=== PATIENT | male | born 1935 | race Caucasian/White ===

== ENCOUNTER → 2016-06-17 | Outpatient (CLI) | payer MEDICARE, OTHER ==
[~2016-06-17] MED LIST: ASPIRIN 32325 MG/TAB PO; ASPIRIN E.C. 8181 MG PO; AZULFIDINE500 MG/TAB PO; BENTYL 20MG20 MG/TAB PO; CARAFATE 1GM1 G PO; CARAFATE S1 GM/10 ML PO; COLACE 100100 MG/CAP PO; CRESTOR 10MG10 MG PO; CRESTOR5 MG PO; FLEXERIL10 MG PO; FOLIC ACID 11 MG/TA1 PO; GLUCOSAMINE PO; HCTZ 25MG25 MG PO; IRON325 M2 PO; KEPPRA 500MG500 MG PO; KEPPRA750 MG PO; LEVAQUIN 250MG250 MG PO; LEVAQUIN 5500 MG/TA1 PO; LEVAQUIN 750MG750 M1 PO; LEVOXYL0.025 MG; LIP PO; LISINOPRIL10 MG PO; LISINOPRIL2.5 MG PO; LOPRESSOR 225 MG/TAB PO; METOPROLOL TART25 MG PO; METOPROLOL25 MG PO; MULTI VITAMINS1 TAB PO; NATURAL E400 IU PO; NIACIN500 M1 PO; NIASPAN500 MG PO; NORCO 325 MG-51 TAB PO; PEPCID 20MG TAB20 MG PO; PERCOCET 325 MG1 TA2 PO; PLAVIX 75MG TAB75 MG PO; POTASSIUM CH2 MEQ/ML PO; PRAVACHOL 40MG40 MG PO; PREDNISONE20 MG PO; PROSCAR 5MG5 MG PO; TOPROL XL 25MG25 MG PO; TUSS PO; VALIUM 5MG T5 MG/TAB PO; VITAMIN B-1100 MG PO; VITAMIN D 400400 IU PO; VITAMIND3 5000; ZESTRIL 10MG10 MG PO; ZITHROMAX 250M250 MG PO
== END ==
LOC: COL.VAS 09:00
DX: R06.02 Shortness of breath (principal); J44.9 Chronic obstructive pulmonary disease, unspecified
CPT/HCPCS: J7674

== ENCOUNTER 2016-11-04 13:55 | Inpatient (IN) | payer MEDICARE, OTHER ==
[~2016-11-04] VITALS: Ht 172.7 cm; Wt 72.4 kg
[~2016-11-04 13:55] MED LIST changes: -AZULFIDINE500 MG/TAB PO; -BENTYL 20MG20 MG/TAB PO; -CARAFATE 1GM1 G PO; -CARAFATE S1 GM/10 ML PO; -COLACE 100100 MG/CAP PO; -IRON325 M2 PO; -PRAVACHOL 40MG40 MG PO; -PROSCAR 5MG5 MG PO; -VALIUM 5MG T5 MG/TAB PO; -VITAMIND3 5000
[2016-11-04] MEDS ORDERED: PRAVACHOL 40MG40 MG PO (14:06)
[2016-11-04] MEDS ORDERED: PROSCAR 5MG5 MG PO (14:06)
[2016-11-04] MEDS ORDERED: VITAMIND3 5000 (14:07)
[2016-11-04 15:22] LABS: BASO # 0.1 (0.0-0.2); BASO % 0.7 % (0.0-2.0); EOS # 0.6 (0.0-0.7); EOS % 7.4 % (0-4.0); GRAN # 5.4 (1.4-6.5); GRAN % 65.5 % (42.2-75.2); HEMATOCRIT 43.9 % (42.0-52.0); HEMOGLOBIN 15.4 g/dl (13.5-18.0); LYMPH # 1.6 (1.2-3.4); LYMPH % 19.1 % (20.0-51.0); MEAN CELL VOLUME 90 fl (80.0-100.0); MEAN CORPUSCULAR HEMOGLOBIN 32 pg (27.0-31.0); MEAN CORPUSCULAR HGB CONC 35 g/dl (33.0-37.0); MEAN PLATELET VOLUME 10.8 fl (7.4-10.4); MONO # 0.6 (0.1-0.6); MONO % 7.1 % (1.7-9.3); PLATELET COUNT 193 K/mm3 (130-400); RED BLOOD COUNT 4.86 M/mm3 (4.20-5.60); REDCELL DISTRIBUTION WIDTH-CV 13.2 % (11.5-14.5); WHITE BLOOD COUNT 8.3 K/mm3 (4.8-10.8)
[2016-11-04 15:28] LABS: ADJUSTED CALCIUM 8.8 mg/dL (8.4-10.2); ALBUMIN 4.3 gm/dL (3.5-5.0); BILIRUBIN,TOTAL 0.9 mg/dL (0.0-1.0); CREATININE, serum 1.33 mg/dL (0.66-1.25); POTASSIUM 3.9 mmol/L (3.4-5.0); TOTAL PROTEIN 7.1 gm/dL (6.4-8.2)
[2016-11-04 15:29] LABS: INR 1.1 (0.8-3.0); PROTHROMBIN TIME 11.7 SECONDS (9.7-12.8)
[2016-11-04 16:43] VITALS: BP 135/90; PULSE 65; TEMP 97.9
[2016-11-04 18:34] VITALS: BP 135/90; PULSE 65; TEMP 97.9
[2016-11-04 19:43] VITALS: BP 146/84; PULSE 64; TEMP 98.7
[2016-11-05] VITALS (10 sets, daily range): BP systolic 102–143; BP diastolic 64–92; PULSE 60–90; TEMP 97–98.8
[2016-11-05 07:47] LABS: CALCIUM 8.4 mg/dL (8.4-10.2); CREATININE, serum 1.11 mg/dL (0.66-1.25)
[2016-11-05 07:58] LABS: BASO # 0.1 (0.0-0.2); BASO % 0.8 % (0.0-2.0); EOS # 0.7 (0.0-0.7); GRAN # 5.6 (1.4-6.5); GRAN % 67.5 % (42.2-75.2); HEMATOCRIT 40.5 % (42.0-52.0); LYMPH # 1.4 (1.2-3.4); LYMPH % 17.1 % (20.0-51.0); MEAN CELL VOLUME 91 fl (80.0-100.0); MEAN CORPUSCULAR HEMOGLOBIN 31 pg (27.0-31.0); MEAN CORPUSCULAR HGB CONC 35 g/dl (33.0-37.0); MEAN PLATELET VOLUME 11.4 fl (7.4-10.4); MONO # 0.5 (0.1-0.6); MONO % 6.1 % (1.7-9.3); PLATELET COUNT 177 K/mm3 (130-400); RED BLOOD COUNT 4.47 M/mm3 (4.20-5.60); REDCELL DISTRIBUTION WIDTH-CV 13.2 % (11.5-14.5); WHITE BLOOD COUNT 8.4 K/mm3 (4.8-10.8)
[2016-11-05 13:32] LABS: HEMATOCRIT 37.2 % (42.0-52.0); HEMOGLOBIN 12.8 g/dl (13.5-18.0)
[2016-11-06 02:24] VITALS: BP 155/78; PULSE 60; TEMP 97.8
[2016-11-06 07:20] LABS: HEMATOCRIT 39.1 % (42.0-52.0); HEMOGLOBIN 13.3 g/dl (13.5-18.0)
[2016-11-06 07:31] LABS: CALCIUM 8.1 mg/dL (8.4-10.2); CREATININE, serum 1.16 mg/dL (0.66-1.25); POTASSIUM 3.9 mmol/L (3.4-5.0)
[2016-11-06 08:01] VITALS: BP 142/73; PULSE 62; TEMP 98.4
[2016-11-06 11:59] VITALS: BP 174/95; PULSE 59; TEMP 98.1
[2016-11-06 15:29] VITALS: BP 149/85; PULSE 61; TEMP 98.7
[2016-11-06 19:39] VITALS: BP 124/68; PULSE 59; TEMP 98.1
[2016-11-06 22:43] VITALS: BP 137/67; PULSE 60; TEMP 98
[2016-11-07 02:29] VITALS: BP 146/84; PULSE 71; TEMP 98.9
[2016-11-07 07:11] LABS: HEMATOCRIT 38.5 % (42.0-52.0); HEMOGLOBIN 13.6 g/dl (13.5-18.0)
[2016-11-07 07:44] VITALS: BP 152/85; PULSE 67; TEMP 97.7
[2016-11-07] MEDS ORDERED: IRON325 M2 PO (09:28)
[2016-11-07 11:50] VITALS: BP 131/82; PULSE 60; TEMP 98.5
[2017-01-04] MEDS ORDERED: PLAVIX 75MG TAB75 MG PO (21:46)
[2017-01-07] MEDS ORDERED: AZULFIDINE500 MG/TAB PO (12:06)
[2017-01-07] MEDS ORDERED: CARAFATE S1 GM/10 ML PO (12:06)
== END 2016-11-07 16:07 | disposition home or self-care (01) | DRG 375 ==
LOC: COL.ER 13:55 → MEDICAL 15:49 → EDBEDREQ 16:13 → MEDICAL 11-07 16:07
PROVIDERS: Emergency Medicine; Internal Medicine; Internal Medicine Gastroenterology; Physician Assistant
PROC: 0DBP8ZX Excision of Rectum, Via Natural or Artificial Opening Endoscopic, Diagnostic (ICD-10-PCS; principal; 2016-11-05 11:45)
PROC: 0DJ08ZZ Inspection of Upper Intestinal Tract, Via Natural or Artificial Opening Endoscopic (ICD-10-PCS; 2016-11-05 11:45)
DX: C20 Malignant neoplasm of rectum (principal); K80.10 Calculus of gallbladder with chronic cholecystitis without obstruction; I25.2 Old myocardial infarction; I12.9 Hypertensive chronic kidney disease with stage 1 through stage 4 chronic kidney disease, or unspecified chronic kidney disease; N18.3 Chronic kidney disease, stage 3 (moderate); I48.91 Unspecified atrial fibrillation; I25.10 Atherosclerotic heart disease of native coronary artery without angina pectoris; Z95.5 Presence of coronary angioplasty implant and graft; Z95.0 Presence of cardiac pacemaker; Z85.118 Personal history of other malignant neoplasm of bronchus and lung; Z87.891 Personal history of nicotine dependence; Z90.2 Acquired absence of lung [part of]
CPT/HCPCS: 99223-AI; 99232-AI; 99233-AI; 99239; J2250; J2405; J3010; J7030; Q9967

== ENCOUNTER → 2016-11-11 | Outpatient (CLI) | payer MEDICARE, OTHER ==
[~2016-11-11] MED LIST changes: +AZULFIDINE500 MG/TAB PO; +BENTYL 20MG20 MG/TAB PO; +CARAFATE 1GM1 G PO; +CARAFATE S1 GM/10 ML PO; +COLACE 100100 MG/CAP PO; +IRON325 M2 PO; +PRAVACHOL 40MG40 MG PO; +PROSCAR 5MG5 MG PO; +VALIUM 5MG T5 MG/TAB PO; +VITAMIND3 5000
[2016-11-11 09:35] LABS: HEMATOCRIT 41.9 % (42.0-52.0); HEMOGLOBIN 14.7 g/dl (13.5-18.0); MEAN CELL VOLUME 90 fl (80.0-100.0); MEAN CORPUSCULAR HEMOGLOBIN 32 pg (27.0-31.0); MEAN CORPUSCULAR HGB CONC 35 g/dl (33.0-37.0); MEAN PLATELET VOLUME 12.1 fl (7.4-10.4); PLATELET COUNT 93 K/mm3 (130-400); RED BLOOD COUNT 4.65 M/mm3 (4.20-5.60); REDCELL DISTRIBUTION WIDTH-CV 13.3 % (11.5-14.5); WHITE BLOOD COUNT 7.9 K/mm3 (4.8-10.8)
== END ==
LOC: COL.LAB 07:26
PROVIDERS: Physician Assistant
DX: K63.9 Disease of intestine, unspecified (principal)

== ENCOUNTER → 2016-11-22 | Outpatient (CLI) | payer MEDICARE, OTHER | LOC: COL.RAD 10:53 | DX: C20 Malignant neoplasm of rectum (principal); G31.9 Degenerative disease of nervous system, unspecified; I10 Essential (primary) hypertension | CPT/HCPCS: Q9967 ==

== ENCOUNTER 2016-12-05 10:33 | Day surgery (SDC) | payer MEDICARE, OTHER ==
[~2016-12-05] VITALS: Ht 170.2 cm; Wt 72.0 kg
[~2016-12-05 10:33] MED LIST changes: -AZULFIDINE500 MG/TAB PO; -BENTYL 20MG20 MG/TAB PO; -CARAFATE 1GM1 G PO; -CARAFATE S1 GM/10 ML PO; -COLACE 100100 MG/CAP PO; -VALIUM 5MG T5 MG/TAB PO
[2016-12-05 11:18] LABS: BASO # 0.1 (0.0-0.2); EOS # 0.7 (0.0-0.7); GRAN % 67.9 % (42.2-75.2); HEMATOCRIT 43.1 % (42.0-52.0); HEMOGLOBIN 14.7 g/dl (13.5-18.0); LYMPH # 1.8 (1.2-3.4); LYMPH % 17.1 % (20.0-51.0); MEAN CELL VOLUME 93 fl (80.0-100.0); MEAN CORPUSCULAR HEMOGLOBIN 32 pg (27.0-31.0); MEAN CORPUSCULAR HGB CONC 34 g/dl (33.0-37.0); MEAN PLATELET VOLUME 10.2 fl (7.4-10.4); MONO # 0.7 (0.1-0.6); MONO % 6.7 % (1.7-9.3); PLATELET COUNT 204 K/mm3 (130-400); RED BLOOD COUNT 4.65 M/mm3 (4.20-5.60); REDCELL DISTRIBUTION WIDTH-CV 13.4 % (11.5-14.5); WHITE BLOOD COUNT 10.3 K/mm3 (4.8-10.8)
[2016-12-05 11:19] VITALS: BP 110/78; PULSE 67; TEMP 98.2
[2016-12-05] MEDS ORDERED: MULTI VITAMINS1 TAB PO (11:19)
[2016-12-05 11:40] LABS: CALCIUM 9.5 mg/dL (8.4-10.2); CREATININE, serum 1.33 mg/dL (0.66-1.25); POTASSIUM 4.6 mmol/L (3.4-5.0)
[2016-12-05] MEDS ORDERED: NORCO 325 MG-51 TAB PO (13:22)
[2016-12-05] MEDS ORDERED: COLACE 100100 MG/CAP PO (13:22)
[2016-12-05 13:31] VITALS: BP 80/53; PULSE 64; TEMP 97.9
[2016-12-05 13:45] VITALS: BP 101/66; PULSE 60
[2016-12-05 14:00] VITALS: BP 102/65; PULSE 60
[2017-01-04] MEDS ORDERED: PLAVIX 75MG TAB75 MG PO (21:46)
[2017-01-07] MEDS ORDERED: AZULFIDINE500 MG/TAB PO (12:06)
[2017-01-07] MEDS ORDERED: CARAFATE S1 GM/10 ML PO (12:06)
== END 2016-12-05 14:35 | disposition home or self-care (01) ==
LOC: SDCO 10:33
PROVIDERS: Surgery
DX: C20 Malignant neoplasm of rectum (principal); I10 Essential (primary) hypertension; I25.10 Atherosclerotic heart disease of native coronary artery without angina pectoris; I48.91 Unspecified atrial fibrillation; I25.2 Old myocardial infarction; F17.210 Nicotine dependence, cigarettes, uncomplicated; K21.9 Gastro-esophageal reflux disease without esophagitis; D50.9 Iron deficiency anemia, unspecified; M19.90 Unspecified osteoarthritis, unspecified site; M62.81 Muscle weakness (generalized); Z95.5 Presence of coronary angioplasty implant and graft; Z95.810 Presence of automatic (implantable) cardiac defibrillator; Z85.118 Personal history of other malignant neoplasm of bronchus and lung; Z86.73 Personal history of transient ischemic attack (TIA), and cerebral infarction without residual deficits; Z83.3 Family history of diabetes mellitus
CPT/HCPCS: C1788; J0690; J1644; J2250; J2405; J2704; J3010; J7120

== ENCOUNTER 2017-01-11 16:10 | Emergency (ER) | payer MEDICARE, OTHER ==
[~2017-01-11] VITALS: Ht 170.2 cm; Wt 69.5 kg
[~2017-01-11 16:10] MED LIST changes: +AZULFIDINE500 MG/TAB PO; +CARAFATE S1 GM/10 ML PO; +COLACE 100100 MG/CAP PO
[2017-01-11 16:12] VITALS: TEMP 97.8
[2017-01-11 17:16] LABS: BASO % 0.5 % (0.0-2.0); EOS # 0.2 (0.0-0.7); EOS % 5.5 % (0-4.0); LYMPH # 0.4 (1.2-3.4); LYMPH % 8.4 % (20.0-51.0); MEAN CELL VOLUME 92 fl (80.0-100.0); MEAN CORPUSCULAR HGB CONC 35 g/dl (33.0-37.0); MONO # 0.6 (0.1-0.6); MONO % 13.6 % (1.7-9.3); PLATELET COUNT 174 K/mm3 (130-400); RED BLOOD COUNT 3.74 M/mm3 (4.20-5.60); REDCELL DISTRIBUTION WIDTH-CV 15.6 % (11.5-14.5); WHITE BLOOD COUNT 4.2 K/mm3 (4.8-10.8)
[2017-01-11 17:20] LABS: HEMATOCRIT 34.4 % (42.0-52.0); HEMOGLOBIN 11.9 g/dl (13.5-18.0); MEAN CORPUSCULAR HEMOGLOBIN 32 pg (27.0-31.0)
[2017-01-11 17:37] LABS: ADJUSTED CALCIUM 9.1 mg/dL (8.4-10.2); BILIRUBIN,TOTAL 0.4 mg/dL (0.0-1.0); CALCIUM 8.3 mg/dL (8.4-10.2); CREATININE, serum 1.1 mg/dL (0.66-1.25); POTASSIUM 3.3 mmol/L (3.4-5.0); TOTAL PROTEIN 5.3 gm/dL (6.4-8.2)
[2017-01-11] MEDS ORDERED: CARAFATE 1GM1 G PO (17:54)
[2017-01-11] MEDS ORDERED: BENTYL 20MG20 MG/TAB PO (17:54)
[2017-01-11] MEDS ORDERED: VALIUM 5MG T5 MG/TAB PO (17:54)
[2017-01-11 18:33] VITALS: BP 109/73; PULSE 60
== END 2017-01-11 18:35 | disposition home or self-care (01) ==
LOC: COL.ER 16:10
PROVIDERS: Emergency Medicine
DX: R10.84 Generalized abdominal pain (principal); M54.9 Dorsalgia, unspecified; I25.10 Atherosclerotic heart disease of native coronary artery without angina pectoris; F17.210 Nicotine dependence, cigarettes, uncomplicated; C20 Malignant neoplasm of rectum; Z92.21 Personal history of antineoplastic chemotherapy; Z92.3 Personal history of irradiation; Z79.02 Long term (current) use of antithrombotics/antiplatelets; Z95.5 Presence of coronary angioplasty implant and graft; Z95.0 Presence of cardiac pacemaker; Z95.810 Presence of automatic (implantable) cardiac defibrillator
CPT/HCPCS: J7030

== ENCOUNTER → 2017-02-10 | Outpatient (CLI) | payer MEDICARE, OTHER ==
[~2017-02-10] MED LIST changes: +ASPI325T6 PO; +BENTYL 20MG20 MG/TAB PO; +CARAFATE 1GM1 G PO; +VALIUM 5MG T5 MG/TAB PO
== END ==
LOC: COL.RAD 13:00
DX: G31.9 Degenerative disease of nervous system, unspecified (principal); Z85.118 Personal history of other malignant neoplasm of bronchus and lung; Z85.048 Personal history of other malignant neoplasm of rectum, rectosigmoid junction, and anus

== ENCOUNTER 2017-02-13 11:33 | Observation (INO) | payer MEDICARE, OTHER ==
[~2017-02-13] VITALS: Ht 170.2 cm; Wt 63.3 kg
[~2017-02-13 11:33] MED LIST changes: -ASPI325T6 PO
[2017-02-13 12:11] LABS: BASO % 0.6 % (0.0-2.0); EOS # 0.1 (0.0-0.7); EOS % 0.8 % (0-4.0); GRAN # 5.5 (1.4-6.5); GRAN % 82.7 % (42.2-75.2); LYMPH # 0.5 (1.2-3.4); LYMPH % 7.2 % (20.0-51.0); MEAN CELL VOLUME 94 fl (80.0-100.0); MEAN CORPUSCULAR HGB CONC 33 g/dl (33.0-37.0); MEAN PLATELET VOLUME 10.2 fl (7.4-10.4); MONO # 0.5 (0.1-0.6); MONO % 7.8 % (1.7-9.3); PLATELET COUNT 246 K/mm3 (130-400); RED BLOOD COUNT 3.16 M/mm3 (4.20-5.60); REDCELL DISTRIBUTION WIDTH-CV 16.3 % (11.5-14.5); WHITE BLOOD COUNT 6.6 K/mm3 (4.8-10.8)
[2017-02-13 12:13] LABS: HEMATOCRIT 29.8 % (42.0-52.0); HEMOGLOBIN 9.9 g/dl (13.5-18.0); MEAN CORPUSCULAR HEMOGLOBIN 31 pg (27.0-31.0)
[2017-02-13 12:21] LABS: ADJUSTED CALCIUM 9.2 mg/dL (8.4-10.2); ALANINE AMINOTRANSFERASE 29 U/L (21-72); ALBUMIN 2.9 gm/dL (3.5-5.0); ALKALINE PHOSPHATASE 64 U/L (50-136); ANION GAP 9 mmol/L (7-16); BILIRUBIN,TOTAL 0.6 mg/dL (0.0-1.0); BLOOD UREA NITROGEN 20 mg/dL (9-20); CALCIUM 8.3 mg/dL (8.4-10.2); CARBON DIOXIDE 24 mmol/L (22-30); CHLORIDE 102 mmol/L (98-107); CREATININE, serum 1.24 mg/dL (0.66-1.25); GLUCOSE 119 mg/dL (74-106); POTASSIUM 3.5 mmol/L (3.4-5.0); SODIUM 134 mmol/L (137-145); TOTAL PROTEIN 5.4 gm/dL (6.4-8.2)
[2017-02-13 12:23] LABS: INR 1.1 (0.8-3.0); PROTHROMBIN TIME 12.6 SECONDS (9.7-12.8)
[2017-02-13 12:25] LABS: PARTIAL THROMBOPLASTIN TIME 34.1 SECONDS (26.0-37.0)
[2017-02-13 12:37] LABS: TROPONIN-I < 0.012 ng/mL (0.000-0.034)
[2017-02-13 13:55] LABS: PH 5 (5-8); SQUAMOUS EPITHELIAL 0-2 /hpf; URINE APPEARANCE Clear; URINE BACTERIA None Seen /hpf; URINE BILIRUBIN Negative (NEGATIVE); URINE BLOOD Negative (NEGATIVE); URINE COLOR Yellow; URINE GLUCOSE Negative (NEGATIVE); URINE KETONE Negative (NEGATIVE); URINE UROBILINOGEN Negative (NEGATIVE); URINE WBC 0-2 /hpf
[2017-02-13 15:48] VITALS: BP 129/70; PULSE 78; TEMP 98.6
[2017-02-13 15:51] VITALS: BP 129/70; PULSE 114; PULSE 78; TEMP 98.6
[2017-02-13 19:20] LABS: HEMATOCRIT 27.1 % (42.0-52.0); HEMOGLOBIN 9.1 g/dl (13.5-18.0)
[2017-02-13 19:29] LABS: MAGNESIUM 1.9 mg/dL (1.6-2.3)
[2017-02-13 20:10] VITALS: BP 122/76; PULSE 77; TEMP 97.9
[2017-02-14] VITALS (7 sets, daily range): BP systolic 87–119; BP diastolic 47–75; PULSE 60–67; TEMP 97.6–98.8
[2017-02-14 08:25] LABS: ALANINE AMINOTRANSFERASE 35 U/L (21-72); ALBUMIN 2.2 gm/dL (3.5-5.0); ALKALINE PHOSPHATASE 55 U/L (50-136); ANION GAP 4 mmol/L (7-16); BILIRUBIN,TOTAL 0.4 mg/dL (0.0-1.0); BLOOD UREA NITROGEN 14 mg/dL (9-20); CALCIUM 7.6 mg/dL (8.4-10.2); CARBON DIOXIDE 23 mmol/L (22-30); CHLORIDE 111 mmol/L (98-107); CREATININE, serum 0.97 mg/dL (0.66-1.25); GLUCOSE 76 mg/dL (74-106); POTASSIUM 3.4 mmol/L (3.4-5.0); SODIUM 138 mmol/L (137-145); TOTAL PROTEIN 4.3 gm/dL (6.4-8.2)
[2017-02-14 09:03] LABS: TROPONIN-I < 0.012 ng/mL (0.000-0.034)
[2017-02-14 09:10] LABS: MEAN CELL VOLUME 94 fl (80.0-100.0); MEAN CORPUSCULAR HGB CONC 33 g/dl (33.0-37.0); MEAN PLATELET VOLUME 10.5 fl (7.4-10.4); PLATELET COUNT 184 K/mm3 (130-400); RED BLOOD COUNT 2.65 M/mm3 (4.20-5.60); REDCELL DISTRIBUTION WIDTH-CV 16.2 % (11.5-14.5)
[2017-02-14 09:11] LABS: HEMOGLOBIN 8.3 g/dl (13.5-18.0); MEAN CORPUSCULAR HEMOGLOBIN 31 pg (27.0-31.0)
[2017-02-14 09:12] LABS: INR 1.1 (0.8-3.0); PROTHROMBIN TIME 12.7 SECONDS (9.7-12.8)
[2017-02-14] MEDS ORDERED: ASPI325T6 PO (16:01)
[2017-02-14] MEDS ORDERED: LOPRESSOR 225 MG/TAB PO (16:17)
== END 2017-02-14 20:00 | disposition home or self-care (01) ==
LOC: COL.ER 11:33 → MEDICAL 14:18
PROVIDERS: Emergency Medicine; Internal Medicine; Internal Medicine Interventional Cardiology; Nurse Practitioner
DX: R07.9 Chest pain, unspecified (principal); I95.1 Orthostatic hypotension; C20 Malignant neoplasm of rectum; I12.9 Hypertensive chronic kidney disease with stage 1 through stage 4 chronic kidney disease, or unspecified chronic kidney disease; N18.3 Chronic kidney disease, stage 3 (moderate); D64.9 Anemia, unspecified; I25.10 Atherosclerotic heart disease of native coronary artery without angina pectoris; J44.9 Chronic obstructive pulmonary disease, unspecified; I48.91 Unspecified atrial fibrillation; E44.0 Moderate protein-calorie malnutrition; Z90.2 Acquired absence of lung [part of]; Z95.5 Presence of coronary angioplasty implant and graft; Z95.0 Presence of cardiac pacemaker; Z87.891 Personal history of nicotine dependence; Z85.118 Personal history of other malignant neoplasm of bronchus and lung; Z83.3 Family history of diabetes mellitus
CPT/HCPCS: C9113; G0378; G8978-GP; G8979-GP; G8987-GO; G8988-GO; J2916; J7030; J7050

== ENCOUNTER → 2017-05-28 | Outpatient (REF) ==
[~2017-05-28] MED LIST changes: +ASPI325T6 PO
[2017-05-28 01:35] LABS: MEAN CELL VOLUME 93 fl (80.0-100.0); MEAN CORPUSCULAR HGB CONC 33 g/dl (33.0-37.0); MEAN PLATELET VOLUME 10.9 fl (7.4-10.4); PLATELET COUNT 198 K/mm3 (130-400); RED BLOOD COUNT 2.71 M/mm3 (4.20-5.60); REDCELL DISTRIBUTION WIDTH-CV 13.4 % (11.5-14.5)
[2017-05-28 01:36] LABS: HEMATOCRIT 25.2 % (42.0-52.0); HEMOGLOBIN 8.3 g/dl (13.5-18.0); MEAN CORPUSCULAR HEMOGLOBIN 31 pg (27.0-31.0)
[2017-05-28 02:10] LABS: BAND 18 % (0-10); EOSINOPHIL 4 % (0-4); LYMPHOCYTE 10 % (20.0-51.0); NEUTROPHILS 61 % (42.0-75.2)
[2017-05-28 02:11] LABS: ANISOCYTOSIS 2+; HYPOCHROMIA 2+; MICROCYTOSIS 2+
== END ==
LOC: ZCOL.LAB 01:25
PROVIDERS: Internal Medicine
DX: Z01.89 Encounter for other specified special examinations (principal)

== ENCOUNTER → 2017-06-04 | Outpatient (CLI) | payer MEDICARE, OTHER ==
[2017-06-04 16:38] LABS: BASO % 0.6 % (0.0-2.0); EOS # 0.2 (0.0-0.7); EOS % 2.6 % (0-4.0); GRAN # 5.3 (1.4-6.5); GRAN % 77.4 % (42.2-75.2); HEMATOCRIT 29.9 % (42.0-52.0); HEMOGLOBIN 9.8 g/dl (13.5-18.0); LYMPH # 0.7 (1.2-3.4); LYMPH % 10.9 % (20.0-51.0); MEAN CELL VOLUME 92 fl (80.0-100.0); MEAN CORPUSCULAR HEMOGLOBIN 30 pg (27.0-31.0); MEAN CORPUSCULAR HGB CONC 33 g/dl (33.0-37.0); MEAN PLATELET VOLUME 10.8 fl (7.4-10.4); MONO # 0.6 (0.1-0.6); MONO % 8.2 % (1.7-9.3); PLATELET COUNT 283 K/mm3 (130-400); RED BLOOD COUNT 3.25 M/mm3 (4.20-5.60); REDCELL DISTRIBUTION WIDTH-CV 13.6 % (11.5-14.5)
[2017-06-04 16:48] LABS: ALBUMIN 3.3 gm/dL (3.5-5.0); BILIRUBIN,TOTAL 0.2 mg/dL (0.0-1.0); CALCIUM 9.1 mg/dL (8.4-10.2); CREATININE, serum 1.37 mg/dL (0.66-1.25); POTASSIUM 3.7 mmol/L (3.4-5.0); TOTAL PROTEIN 5.7 gm/dL (6.4-8.2)
== END ==
LOC: ZCOL.LAB 16:26
PROVIDERS: Internal Medicine
DX: I25.10 Atherosclerotic heart disease of native coronary artery without angina pectoris (principal)

== ENCOUNTER → 2017-08-26 | Outpatient (CLI) | payer MEDICARE, OTHER ==
[2017-08-26 14:59] LABS: ALBUMIN 3.5 gm/dL (3.5-5.0); BILIRUBIN,TOTAL 0.6 mg/dL (0.0-1.0); CALCIUM 9.2 mg/dL (8.4-10.2); CHOLESTEROL RISK RATIO 2.5; CREATININE, serum 1.27 mg/dL (0.66-1.25); POTASSIUM 4.1 mmol/L (3.4-5.0); TOTAL PROTEIN 6.2 gm/dL (6.4-8.2)
[2017-08-26 15:29] LABS: THYROID STIMULATING HORMONE 4.91 uIU/mL (0.465-4.680)
== END ==
LOC: ZCOL.LAB 12:44
PROVIDERS: Internal Medicine
DX: Z48.3 Aftercare following surgery for neoplasm (principal); E78.5 Hyperlipidemia, unspecified; D50.9 Iron deficiency anemia, unspecified; R53.1 Weakness

== ENCOUNTER → 2017-08-29 | Outpatient (CLI) | payer MEDICARE, OTHER ==
[2017-08-29 19:01] LABS: BASO % 0.7 % (0.0-2.0); EOS # 0.2 (0.0-0.7); EOS % 2.9 % (0-4.0); GRAN # 4.1 (1.4-6.5); GRAN % 69.9 % (42.2-75.2); LYMPH # 0.6 (1.2-3.4); LYMPH % 10.4 % (20.0-51.0); MEAN CELL VOLUME 89 fl (80.0-100.0); MEAN CORPUSCULAR HGB CONC 34 g/dl (33.0-37.0); MEAN PLATELET VOLUME 10.9 fl (7.4-10.4); MONO # 0.8 (0.1-0.6); MONO % 14.4 % (1.7-9.3); PLATELET COUNT 156 K/mm3 (130-400); RED BLOOD COUNT 3.19 M/mm3 (4.20-5.60)
[2017-08-29 19:03] LABS: HEMATOCRIT 28.5 % (42.0-52.0); HEMOGLOBIN 9.7 g/dl (13.5-18.0); MEAN CORPUSCULAR HEMOGLOBIN 30 pg (27.0-31.0)
[2017-08-29 19:08] LABS: ALBUMIN 3.3 gm/dL (3.5-5.0); BILIRUBIN,TOTAL 0.2 mg/dL (0.0-1.0); CALCIUM 8.8 mg/dL (8.4-10.2); CREATININE, serum 1.41 mg/dL (0.66-1.25); POTASSIUM 3.1 mmol/L (3.4-5.0); TOTAL PROTEIN 5.9 gm/dL (6.4-8.2)
== END ==
LOC: ZCOL.LAB 18:40
PROVIDERS: Internal Medicine
DX: C20 Malignant neoplasm of rectum (principal); I10 Essential (primary) hypertension

== ENCOUNTER → 2017-09-18 | Outpatient (REF) ==
[~2017-09-18] MED LIST changes: +ASPIRIN 81M81 MG/TA2 PO; +FERROUS SU325 MG/TAB PO; +KLOR-CON20 MEQ PO; +MIRALAX PA17 GM/Dose PO; +NASACORT OTC NAS; +PROTONIX 40MG T40 MG PO; +SENOKOT8.6 MG PO
[2017-09-18 02:18] LABS: COLLECTION METHOD CATHETER
[2017-09-18 02:28] LABS: MUCOUS Present /lpf; PH 5 (5-8); SQUAMOUS EPITHELIAL 0-2 /hpf; URINE APPEARANCE Cloudy; URINE BACTERIA None Seen /hpf; URINE BILIRUBIN Negative (NEGATIVE); URINE BLOOD 2+ (NEGATIVE); URINE COLOR Amber; URINE GLUCOSE Negative (NEGATIVE); URINE KETONE Negative (NEGATIVE); URINE LEUKOCYTE ESTERASE 1+ (NEGATIVE); URINE NITRATE Negative (NEGATIVE); URINE PROTEIN(semi-quant) 2+ (NEGATIVE); URINE RBC 20-50 /hpf; URINE UROBILINOGEN Negative (NEGATIVE); URINE WBC >50 /hpf
== END ==
LOC: ZCOL.LAB 02:16
PROVIDERS: Internal Medicine
DX: N39.0 Urinary tract infection, site not specified (principal)

== ENCOUNTER → 2017-09-19 | Outpatient (CLI) | payer MEDICARE, OTHER | LOC: COL.RAD 09:32 | DX: S32.020A Wedge compression fracture of second lumbar vertebra, initial encounter for closed fracture (principal); I71.4 Abdominal aortic aneurysm, without rupture; M51.46 Schmorl's nodes, lumbar region; M47.816 Spondylosis without myelopathy or radiculopathy, lumbar region; M43.16 Spondylolisthesis, lumbar region; K63.89 Other specified diseases of intestine; M51.26 Other intervertebral disc displacement, lumbar region; M99.53 Intervertebral disc stenosis of neural canal of lumbar region | CPT/HCPCS: A9503 ==

== ENCOUNTER 2017-09-22 12:42 | Day surgery (SDC) | payer MEDICARE, OTHER ==
[~2017-09-22] VITALS: Ht 170.2 cm; Wt 62.7 kg
[~2017-09-22 12:42] MED LIST changes: -ASPIRIN 81M81 MG/TA2 PO; -FERROUS SU325 MG/TAB PO
[2017-09-22 13:39] VITALS: BP 135/81; PULSE 61; TEMP 97.3
[2017-09-22] MEDS ORDERED: FERROUS SU325 MG/TAB PO (14:13)
[2017-09-22] MEDS ORDERED: ASPIRIN 81M81 MG/TA2 PO (14:14)
[2017-09-22 14:40] VITALS: BP 113/75; PULSE 60; TEMP 97
[2017-09-22 14:55] VITALS: BP 112/73; PULSE 60
[2017-09-22 15:10] VITALS: BP 105/72; PULSE 60
[2017-09-22 15:26] VITALS: BP 125/78; PULSE 60
[2017-09-22 15:55] VITALS: BP 132/80; PULSE 61
== END 2017-09-22 16:30 | disposition home or self-care (01) ==
LOC: SDCO 12:42
DX: Z85.048 Personal history of other malignant neoplasm of rectum, rectosigmoid junction, and anus (principal); Z86.010 Personal history of colon polyps; D12.3 Benign neoplasm of transverse colon; Z93.3 Colostomy status; K57.30 Diverticulosis of large intestine without perforation or abscess without bleeding; Z79.82 Long term (current) use of aspirin; K21.0 Gastro-esophageal reflux disease with esophagitis; Z95.0 Presence of cardiac pacemaker; Z87.891 Personal history of nicotine dependence; E78.00 Pure hypercholesterolemia, unspecified; I10 Essential (primary) hypertension; I51.9 Heart disease, unspecified; Z85.118 Personal history of other malignant neoplasm of bronchus and lung
CPT/HCPCS: J2250; J3010; J7030

== ENCOUNTER → 2017-09-29 | Outpatient (CLI) | payer MEDICARE, OTHER ==
[~2017-09-29] MED LIST changes: +ASPIRIN 81M81 MG/TA2 PO; +FERROUS SU325 MG/TAB PO
[2017-09-29 11:53] LABS: COLLECTION METHOD CATHETER
[2017-09-29 12:02] LABS: MUCOUS Present /lpf; PH 9 (5-8); SQUAMOUS EPITHELIAL 0-2 /hpf; URINE APPEARANCE Cloudy; URINE BACTERIA Rare /hpf; URINE BILIRUBIN Negative (NEGATIVE); URINE BLOOD 1+ (NEGATIVE); URINE COLOR Yellow; URINE GLUCOSE Negative (NEGATIVE); URINE KETONE Negative (NEGATIVE); URINE LEUKOCYTE ESTERASE 2+ (NEGATIVE); URINE NITRATE Negative (NEGATIVE); URINE PROTEIN(semi-quant) 3+ (NEGATIVE); URINE RBC >50 /hpf; URINE UROBILINOGEN Negative (NEGATIVE)
== END ==
LOC: ZCOL.LAB 11:51
PROVIDERS: Internal Medicine
DX: Z93.2 Ileostomy status (principal)

== ENCOUNTER → 2017-10-01 | Outpatient (REF) | LOC: ZCOL.LAB 10:04 | DX: Z01.89 Encounter for other specified special examinations (principal) ==

== ENCOUNTER → 2017-10-03 | Outpatient (CLI) | payer MEDICARE, OTHER ==
[2017-10-03 16:10] LABS: BASO # 0.1 (0.0-0.2); EOS # 0.2 (0.0-0.7); EOS % 3.1 % (0-4.0); GRAN # 4.1 (1.4-6.5); HEMOGLOBIN 11.2 g/dl (13.5-18.0); LYMPH # 0.8 (1.2-3.4); LYMPH % 14.4 % (20.0-51.0); MEAN CELL VOLUME 98 fl (80.0-100.0); MEAN CORPUSCULAR HEMOGLOBIN 33 pg (27.0-31.0); MEAN CORPUSCULAR HGB CONC 33 g/dl (33.0-37.0); MEAN PLATELET VOLUME 12.2 fl (7.4-10.4); MONO # 0.6 (0.1-0.6); PLATELET COUNT 156 K/mm3 (130-400); RED BLOOD COUNT 3.45 M/mm3 (4.20-5.60); REDCELL DISTRIBUTION WIDTH-CV 17.9 % (11.5-14.5)
[2017-10-03 16:12] LABS: HEMATOCRIT 33.8 % (42.0-52.0)
[2017-10-03 16:42] LABS: ALBUMIN 3.8 gm/dL (3.5-5.0); BILIRUBIN,TOTAL 0.5 mg/dL (0.0-1.0); CALCIUM 9.5 mg/dL (8.4-10.2); CREATININE, serum 1.16 mg/dL (0.66-1.25); POTASSIUM 4.1 mmol/L (3.4-5.0); TOTAL PROTEIN 6.8 gm/dL (6.4-8.2)
== END ==
LOC: ZCOL.LAB 13:00
PROVIDERS: Internal Medicine
DX: C20 Malignant neoplasm of rectum (principal)

== ENCOUNTER → 2017-10-17 | Outpatient (CLI) | payer MEDICARE, OTHER ==
[2017-10-17 18:24] LABS: CALCIUM 9.2 mg/dL (8.4-10.2); CREATININE, serum 1.16 mg/dL (0.66-1.25); POTASSIUM 4.2 mmol/L (3.4-5.0)
== END ==
LOC: ZCOL.LAB 18:15
PROVIDERS: Internal Medicine
DX: I10 Essential (primary) hypertension (principal)

== ENCOUNTER → 2017-12-15 | Outpatient (REF) ==
[2017-12-15 11:15] LABS: BASO # 0.1 (0.0-0.2); BASO % 0.8 % (0.0-2.0); EOS # 0.6 (0.0-0.7); EOS % 9.1 % (0-4.0); GRAN # 4.3 (1.4-6.5); GRAN % 66.5 % (42.2-75.2); HEMATOCRIT 33.6 % (42.0-52.0); HEMOGLOBIN 11.3 g/dl (13.5-18.0); LYMPH # 0.9 (1.2-3.4); LYMPH % 14.5 % (20.0-51.0); MEAN CELL VOLUME 92 fl (80.0-100.0); MEAN CORPUSCULAR HEMOGLOBIN 31 pg (27.0-31.0); MEAN CORPUSCULAR HGB CONC 34 g/dl (33.0-37.0); MEAN PLATELET VOLUME 10.6 fl (7.4-10.4); MONO # 0.6 (0.1-0.6); MONO % 8.6 % (1.7-9.3); PLATELET COUNT 159 K/mm3 (130-400); RED BLOOD COUNT 3.67 M/mm3 (4.20-5.60); REDCELL DISTRIBUTION WIDTH-CV 13.2 % (11.5-14.5)
== END ==
LOC: ZCOL.LAB 10:59
PROVIDERS: Internal Medicine
DX: D50.9 Iron deficiency anemia, unspecified (principal); I48.0 Paroxysmal atrial fibrillation

== ENCOUNTER → 2017-12-16 | Outpatient (REF) ==
[2017-12-16 11:30] LABS: COLLECTION METHOD RANDOM VOIDED
[2017-12-16 11:48] LABS: MUCOUS Present /lpf; PH 7 (5-8); SQUAMOUS EPITHELIAL 0-2 /hpf; URINE APPEARANCE Hazy; URINE BACTERIA Rare /hpf; URINE BILIRUBIN Negative (NEGATIVE); URINE BLOOD 1+ (NEGATIVE); URINE COLOR Yellow; URINE GLUCOSE Negative (NEGATIVE); URINE KETONE Negative (NEGATIVE); URINE LEUKOCYTE ESTERASE 2+ (NEGATIVE); URINE NITRATE Positive (NEGATIVE); URINE PROTEIN(semi-quant) 2+ (NEGATIVE); URINE UROBILINOGEN Negative (NEGATIVE)
[2017-12-16 11:49] LABS: ALBUMIN 3.7 gm/dL (3.5-5.0); BILIRUBIN,TOTAL 0.4 mg/dL (0.0-1.0); CALCIUM 9.5 mg/dL (8.4-10.2); CREATININE, serum 1.21 mg/dL (0.66-1.25); POTASSIUM 3.9 mmol/L (3.4-5.0); TOTAL PROTEIN 6.2 gm/dL (6.4-8.2)
== END ==
LOC: ZCOL.LAB 11:28
PROVIDERS: Internal Medicine
DX: D50.9 Iron deficiency anemia, unspecified (principal); I10 Essential (primary) hypertension; N39.0 Urinary tract infection, site not specified

== ENCOUNTER → 2017-12-23 | Outpatient (REF) | LOC: ZCOL.LAB 16:16 | DX: M62.81 Muscle weakness (generalized) (principal) ==

== ENCOUNTER → 2018-01-06 | Outpatient (REF) ==
[2018-01-06 11:24] LABS: IRON,SERUM 54 ug/dL (35-150)
[2018-01-06 11:33] LABS: TOTAL IRON BINDING CAPACITY 288 ug/dL (261-462)
[2018-01-06 12:00] LABS: FERRITIN 179 ng/mL (18-464)
== END ==
LOC: ZCOL.LAB 11:06
PROVIDERS: Internal Medicine
DX: D50.9 Iron deficiency anemia, unspecified (principal)

== ENCOUNTER → 2018-01-08 | Outpatient (CLI) | payer MEDICARE, OTHER | LOC: ZCOL.LAB 12:59 | DX: N40.0 Benign prostatic hyperplasia without lower urinary tract symptoms (principal) ==

== ENCOUNTER 2018-05-01 09:25 | Day surgery (SDC) | payer MEDICARE, OTHER ==
[~2018-05-01] VITALS: Ht 170.3 cm; Wt 72.9 kg
[2018-05-01] VITALS (16 sets, daily range): BP systolic 136–170; BP diastolic 62–112; PULSE 60–75; TEMP 97.3
[~2018-05-01 09:25] MED LIST changes: -VITAMIND3 5000; +VITAMIND3 5000 PO
[2018-05-01 10:30] LABS: HEMATOCRIT 37.1 % (42.0-52.0); HEMOGLOBIN 12.6 g/dl (13.5-18.0); MEAN CELL VOLUME 92 fl (80.0-100.0); MEAN CORPUSCULAR HEMOGLOBIN 31 pg (27.0-31.0); MEAN CORPUSCULAR HGB CONC 34 g/dl (33.0-37.0); MEAN PLATELET VOLUME 10.2 fl (7.4-10.4); PLATELET COUNT 143 K/mm3 (130-400); RED BLOOD COUNT 4.05 M/mm3 (4.20-5.60); REDCELL DISTRIBUTION WIDTH-CV 13.6 % (11.5-14.5)
[2018-05-01] MEDS ORDERED: ASPIRIN E.C. 8181 MG PO (10:33)
[2018-05-01] MEDS ORDERED: MIRALAX PA17 GM/Dose PO (10:35)
[2018-05-01 10:36] LABS: PROTHROMBIN TIME 11.9 SECONDS (9.7-12.8)
[2018-05-01] MEDS ORDERED: APRESOLINE 25MG25 MG PO (10:38)
[2018-05-01 10:39] LABS: CALCIUM 9.4 mg/dL (8.4-10.2); CREATININE, serum 1.66 mg/dL (0.66-1.25); POTASSIUM 4.1 mmol/L (3.4-5.0)
[2018-05-01] MEDS ORDERED: VITAMIN C500 MG PO (10:39)
[2018-05-01] MEDS ORDERED: TYLENOL 325MG325 MG PO (10:41)
[2018-05-01] MEDS ORDERED: KEPPRA750 MG PO (10:42)
[2018-05-01] MEDS ORDERED: METOPROLOL TART75 MG PO (10:44)
== END 2018-05-01 19:21 ==
LOC: COL.CAR 09:25
PROVIDERS: Internal Medicine Interventional Cardiology
DX: I25.10 Atherosclerotic heart disease of native coronary artery without angina pectoris (principal); I71.4 Abdominal aortic aneurysm, without rupture; I49.5 Sick sinus syndrome; R94.39 Abnormal result of other cardiovascular function study; E78.5 Hyperlipidemia, unspecified; N18.3 Chronic kidney disease, stage 3 (moderate); E87.6 Hypokalemia; J44.9 Chronic obstructive pulmonary disease, unspecified; Z90.2 Acquired absence of lung [part of]; Z79.82 Long term (current) use of aspirin; Z95.0 Presence of cardiac pacemaker; Z95.5 Presence of coronary angioplasty implant and graft; Z87.891 Personal history of nicotine dependence; Z85.048 Personal history of other malignant neoplasm of rectum, rectosigmoid junction, and anus; Z85.118 Personal history of other malignant neoplasm of bronchus and lung; Z83.3 Family history of diabetes mellitus
CPT/HCPCS: J0360; J1644; J2250; J7040

== ENCOUNTER → 2018-05-22 | Outpatient (REF) ==
[~2018-05-22] MED LIST changes: +APRESOLINE 25MG25 MG PO; +METOPROLOL TART75 MG PO; +TYLENOL 325MG325 MG PO; +VITAMIN C500 MG PO
[2018-05-22 10:28] LABS: ALBUMIN 4.2 gm/dL (3.5-5.0); BILIRUBIN,TOTAL 0.5 mg/dL (0.0-1.0); CALCIUM 9.8 mg/dL (8.4-10.2); CREATININE, serum 1.64 mg/dL (0.66-1.25); MAGNESIUM 1.9 mg/dL (1.6-2.3); POTASSIUM 4.4 mmol/L (3.4-5.0); TOTAL PROTEIN 6.7 gm/dL (6.4-8.2)
== END ==
LOC: ZCOL.LAB 10:03
PROVIDERS: Internal Medicine
DX: Z01.89 Encounter for other specified special examinations (principal)

== ENCOUNTER → 2018-06-05 | Outpatient (CLI) | payer MEDICARE, MEDICAID ==
[2018-06-05 13:56] LABS: MAGNESIUM 1.9 mg/dL (1.6-2.3)
== END ==
LOC: ZCOL.LAB 12:25
PROVIDERS: Internal Medicine
DX: D50.9 Iron deficiency anemia, unspecified (principal); E78.5 Hyperlipidemia, unspecified

== ENCOUNTER → 2018-06-08 | Outpatient (REF) ==
[2018-06-08 11:24] LABS: CALCIUM 9.1 mg/dL (8.4-10.2); CREATININE, serum 1.68 mg/dL (0.66-1.25); POTASSIUM 4.1 mmol/L (3.4-5.0)
== END ==
LOC: ZCOL.LAB 10:57
PROVIDERS: Internal Medicine
DX: N30.00 Acute cystitis without hematuria (principal)

== ENCOUNTER → 2018-07-10 | Outpatient (CLI) | payer MEDICARE, MEDICAID | LOC: COL.RAD 09:17 | DX: Z93.3 Colostomy status (principal) ==

== ENCOUNTER → 2018-07-21 | Outpatient (CLI) | payer MEDICARE, MEDICAID | LOC: ZCOL.LAB 09:24 | DX: C20 Malignant neoplasm of rectum (principal) ==

== ENCOUNTER → 2018-07-21 | Outpatient (CLI) | payer MEDICARE, MEDICAID | LOC: ZCOL.LAB 08:42 | DX: N39.0 Urinary tract infection, site not specified (principal) ==

== ENCOUNTER → 2018-09-02 | Outpatient (CLI) | payer MEDICARE, MEDICAID ==
[2018-09-02 11:51] LABS: CALCIUM 9.5 mg/dL (8.4-10.2); CREATININE, serum 1.98 (0.66-1.25)
== END ==
LOC: COL.LAB 10:57
PROVIDERS: Internal Medicine
DX: I25.10 Atherosclerotic heart disease of native coronary artery without angina pectoris (principal)

== ENCOUNTER → 2018-09-14 | Outpatient (CLI) | payer MEDICARE, MEDICAID | LOC: ZCOL.LAB 12:05 | DX: I10 Essential (primary) hypertension (principal) ==

== ENCOUNTER → 2018-09-14 | Outpatient (CLI) | payer MEDICARE, MEDICAID ==
[2018-09-14 13:32] LABS: CALCIUM 9.4 mg/dL (8.4-10.2); CREATININE, serum 1.77 (0.66-1.25); POTASSIUM 3.7 mmol/L (3.4-5.0)
== END ==
LOC: ZCOL.LAB 12:36
PROVIDERS: Internal Medicine
DX: I10 Essential (primary) hypertension (principal)

== ENCOUNTER → 2018-10-28 | Outpatient (CLI) | payer MEDICARE, OTHER, MEDICAID ==
[2018-10-28 00:46] LABS: COLLECTION METHOD CATHETER
[2018-10-28 00:54] LABS: MUCOUS Present /lpf; PH 6 (5-8); SQUAMOUS EPITHELIAL 0-2 /hpf; URINE APPEARANCE Hazy; URINE BACTERIA None Seen /hpf; URINE BILIRUBIN Negative (NEGATIVE); URINE BLOOD Negative (NEGATIVE); URINE COLOR Yellow; URINE GLUCOSE Negative (NEGATIVE); URINE KETONE Negative (NEGATIVE); URINE LEUKOCYTE ESTERASE Trace (NEGATIVE); URINE NITRATE Negative (NEGATIVE); URINE PROTEIN(semi-quant) 1+ (NEGATIVE); URINE UROBILINOGEN Negative (NEGATIVE)
== END ==
LOC: ZCOL.LAB 00:35
PROVIDERS: Internal Medicine
DX: Z01.89 Encounter for other specified special examinations (principal)

== ENCOUNTER → 2018-11-13 | Outpatient (CLI) | payer MEDICARE, OTHER, MEDICAID ==
[2018-11-13 20:50] LABS: IRON,SERUM 111 ug/dL (35-150)
[2018-11-13 20:59] LABS: TOTAL IRON BINDING CAPACITY 285 ug/dL (261-462)
[2018-11-13 21:26] LABS: FERRITIN 239 ng/mL (18-464)
== END ==
LOC: ZCOL.LAB 16:03
PROVIDERS: Internal Medicine
DX: D50.9 Iron deficiency anemia, unspecified (principal)

== ENCOUNTER → 2018-12-01 | Outpatient (CLI) | payer MEDICARE, OTHER, MEDICAID | LOC: ZCOL.LAB 17:54 | DX: I25.10 Atherosclerotic heart disease of native coronary artery without angina pectoris (principal) ==

== ENCOUNTER → 2018-12-09 | Outpatient (CLI) | payer MEDICARE, OTHER, MEDICAID ==
[2018-12-09 13:44] LABS: CHOLESTEROL RISK RATIO 3.9
== END ==
LOC: ZCOL.LAB 12:52
PROVIDERS: Internal Medicine
DX: D50.9 Iron deficiency anemia, unspecified (principal); E78.5 Hyperlipidemia, unspecified; K21.9 Gastro-esophageal reflux disease without esophagitis

== ENCOUNTER → 2018-12-22 | Outpatient (CLI) | payer MEDICARE, OTHER, MEDICAID ==
[2018-12-22 18:41] LABS: BASO # 0.1 (0.0-0.2); BASO % 0.7 % (0.0-2.0); EOS # 0.7 (0.0-0.7); EOS % 10.5 % (0-4.0); GRAN # 4.7 (1.4-6.5); GRAN % 69.2 % (42.2-75.2); HEMATOCRIT 40.4 % (42.0-52.0); HEMOGLOBIN 13.4 g/dl (13.5-18.0); LYMPH # 0.9 (1.2-3.4); LYMPH % 13.7 % (20.0-51.0); MEAN CELL VOLUME 92 fl (80.0-100.0); MEAN CORPUSCULAR HEMOGLOBIN 30 pg (27.0-31.0); MEAN CORPUSCULAR HGB CONC 33 g/dl (33.0-37.0); MEAN PLATELET VOLUME 11.5 fl (7.4-10.4); MONO # 0.4 (0.1-0.6); MONO % 5.5 % (1.7-9.3); PLATELET COUNT 179 K/mm3 (130-400); RED BLOOD COUNT 4.41 M/mm3 (4.20-5.60); REDCELL DISTRIBUTION WIDTH-CV 13.6 % (11.5-14.5)
[2018-12-22 18:59] LABS: ALBUMIN 4.2 gm/dL (3.5-5.0); BILIRUBIN,TOTAL 0.6 mg/dL (0.0-1.0); CALCIUM 9.3 mg/dL (8.4-10.2); CREATININE, serum 1.78 (0.66-1.25); POTASSIUM 5.1 mmol/L (3.4-5.0); TOTAL PROTEIN 6.8 gm/dL (6.4-8.2)
[2018-12-22 19:30] LABS: THYROID STIMULATING HORMONE 5.66 uIU/mL (0.465-4.680)
== END ==
LOC: ZCOL.LAB 17:39
PROVIDERS: Internal Medicine
DX: Z13.0 Encounter for screening for diseases of the blood and blood-forming organs and certain disorders involving the immune mechanism (principal); D50.9 Iron deficiency anemia, unspecified; E78.5 Hyperlipidemia, unspecified

== ENCOUNTER → 2019-02-11 | Outpatient (CLI) | payer MEDICARE, MEDICAID ==
[2019-02-11 17:21] LABS: CALCIUM 9.4 mg/dL (8.4-10.2); CREATININE, serum 1.81 (0.66-1.25)
[2019-02-11 21:48] LABS: THYROID STIMULATING HORMONE 3.83 uIU/mL (0.465-4.680)
== END ==
LOC: ZCOL.LAB 15:28
PROVIDERS: Internal Medicine
DX: J44.9 Chronic obstructive pulmonary disease, unspecified (principal)

== ENCOUNTER → 2019-02-16 | Outpatient (CLI) | payer MEDICARE, MEDICAID ==
[2019-02-16 17:34] LABS: CREATININE, serum 1.52 (0.66-1.25)
== END ==
LOC: ZCOL.LAB 17:00
PROVIDERS: Internal Medicine
DX: R79.89 Other specified abnormal findings of blood chemistry (principal)

== ENCOUNTER → 2019-05-27 | Outpatient (CLI) | payer MEDICARE, MEDICAID ==
[2019-05-27 12:37] LABS: BASO # 0.1 (0.0-0.2); BASO % 0.5 % (0.0-2.0); EOS # 0.4 (0.0-0.7); EOS % 2.7 % (0-4.0); GRAN # 12.1 (1.4-6.5); GRAN % 81.9 % (42.2-75.2); HEMATOCRIT 45.3 % (42.0-52.0); LYMPH # 1.1 (1.2-3.4); LYMPH % 7.2 % (20.0-51.0); MEAN CELL VOLUME 93 fl (80.0-100.0); MEAN CORPUSCULAR HEMOGLOBIN 31 pg (27.0-31.0); MEAN CORPUSCULAR HGB CONC 33 g/dl (33.0-37.0); MEAN PLATELET VOLUME 11.5 fl (7.4-10.4); MONO # 0.9 (0.1-0.6); MONO % 6.3 % (1.7-9.3); PLATELET COUNT 191 K/mm3 (130-400); RED BLOOD COUNT 4.89 M/mm3 (4.20-5.60)
[2019-05-27 12:55] LABS: ALBUMIN 4.4 gm/dL (3.5-5.0); BILIRUBIN,TOTAL 0.6 mg/dL (0.0-1.0); CALCIUM 9.9 mg/dL (8.4-10.2); CREATININE, serum 1.67 (0.66-1.25); POTASSIUM 4.3 mmol/L (3.4-5.0); TOTAL PROTEIN 7.1 gm/dL (6.4-8.2)
== END ==
LOC: ZCOL.LAB 10:48
PROVIDERS: Internal Medicine
DX: R79.0 Abnormal level of blood mineral (principal); R79.89 Other specified abnormal findings of blood chemistry

== ENCOUNTER → 2019-06-08 | Outpatient (CLI) | payer MEDICARE, MEDICAID ==
[2019-06-08 13:37] LABS: BASO % 0.4 % (0.0-2.0); EOS # 0.3 (0.0-0.7); EOS % 3.6 % (0-4.0); GRAN # 5.3 (1.4-6.5); GRAN % 76.9 % (42.2-75.2); HEMATOCRIT 43.3 % (42.0-52.0); HEMOGLOBIN 14.5 g/dl (13.5-18.0); LYMPH # 0.9 (1.2-3.4); LYMPH % 12.2 % (20.0-51.0); MEAN CELL VOLUME 91 fl (80.0-100.0); MEAN CORPUSCULAR HEMOGLOBIN 31 pg (27.0-31.0); MEAN CORPUSCULAR HGB CONC 34 g/dl (33.0-37.0); MEAN PLATELET VOLUME 11.6 fl (7.4-10.4); MONO # 0.4 (0.1-0.6); MONO % 6.2 % (1.7-9.3); PLATELET COUNT 180 K/mm3 (130-400); RED BLOOD COUNT 4.76 M/mm3 (4.20-5.60); REDCELL DISTRIBUTION WIDTH-CV 14.4 % (11.5-14.5)
[2019-06-08 13:42] LABS: ALBUMIN 4.2 gm/dL (3.5-5.0); BILIRUBIN,TOTAL 0.4 mg/dL (0.0-1.0); CALCIUM 9.6 mg/dL (8.4-10.2); CREATININE, serum 1.77 (0.66-1.25); POTASSIUM 4.1 mmol/L (3.4-5.0); TOTAL PROTEIN 7.1 gm/dL (6.4-8.2)
== END ==
LOC: ZCOL.LAB 13:22
PROVIDERS: Internal Medicine
DX: E78.5 Hyperlipidemia, unspecified (principal)

== ENCOUNTER → 2019-06-17 | Outpatient (CLI) | payer MEDICARE, MEDICAID ==
[2019-06-17 14:05] LABS: BASO % 0.4 % (0.0-2.0); EOS # 0.3 (0.0-0.7); EOS % 4.1 % (0-4.0); GRAN # 5.6 (1.4-6.5); GRAN % 76.5 % (42.2-75.2); HEMATOCRIT 39.4 % (42.0-52.0); HEMOGLOBIN 13.1 g/dl (13.5-18.0); LYMPH # 0.7 (1.2-3.4); LYMPH % 10.2 % (20.0-51.0); MEAN CELL VOLUME 92 fl (80.0-100.0); MEAN CORPUSCULAR HEMOGLOBIN 31 pg (27.0-31.0); MEAN CORPUSCULAR HGB CONC 33 g/dl (33.0-37.0); MONO # 0.6 (0.1-0.6); MONO % 7.8 % (1.7-9.3); PLATELET COUNT 203 K/mm3 (130-400); RED BLOOD COUNT 4.29 M/mm3 (4.20-5.60); REDCELL DISTRIBUTION WIDTH-CV 14.1 % (11.5-14.5)
== END ==
LOC: ZCOL.LAB 13:37
PROVIDERS: Internal Medicine
DX: J44.9 Chronic obstructive pulmonary disease, unspecified (principal)

== ENCOUNTER 2019-07-19 14:18 | Emergency (ER) | payer MEDICARE, MEDICAID ==
[~2019-07-19] VITALS: Ht 170.2 cm; Wt 81.4 kg
[2019-07-19 14:26] VITALS: BP 142/76; TEMP 98.1
[2019-07-19 15:57] LABS: BASO % 0.4 % (0.0-2.0); EOS # 0.1 (0.0-0.7); GRAN # 6.8 (1.4-6.5); GRAN % 84.4 % (42.2-75.2); HEMOGLOBIN 12.4 g/dl (13.5-18.0); LYMPH # 0.4 (1.2-3.4); LYMPH % 4.6 % (20.0-51.0); MEAN CELL VOLUME 91 fl (80.0-100.0); MEAN CORPUSCULAR HEMOGLOBIN 31 pg (27.0-31.0); MEAN CORPUSCULAR HGB CONC 34 g/dl (33.0-37.0); MEAN PLATELET VOLUME 11.1 fl (7.4-10.4); MONO # 0.7 (0.1-0.6); MONO % 8.6 % (1.7-9.3); PLATELET COUNT 153 K/mm3 (130-400); RED BLOOD COUNT 4.07 M/mm3 (4.20-5.60); REDCELL DISTRIBUTION WIDTH-CV 14.6 % (11.5-14.5)
[2019-07-19 16:00] LABS: COLLECTION METHOD UROSTOMY
[2019-07-19 16:09] LABS: MUCOUS Present /lpf; PH 7 (5-8); SQUAMOUS EPITHELIAL 0-2 /hpf; URINE APPEARANCE Hazy; URINE BACTERIA Rare /hpf; URINE BILIRUBIN Negative (NEGATIVE); URINE BLOOD Negative (NEGATIVE); URINE COLOR Yellow; URINE GLUCOSE Negative (NEGATIVE); URINE KETONE Negative (NEGATIVE); URINE LEUKOCYTE ESTERASE Negative (NEGATIVE); URINE NITRATE Positive (NEGATIVE); URINE PROTEIN(semi-quant) Negative (NEGATIVE); URINE RBC 0-2 /hpf; URINE UROBILINOGEN Negative (NEGATIVE)
[2019-07-19 17:28] LABS: ALBUMIN 3.9 gm/dL (3.5-5.0); BILIRUBIN,TOTAL 0.6 mg/dL (0.0-1.0); CALCIUM 8.8 mg/dL (8.4-10.2); CREATININE, serum 1.77 (0.66-1.25); POTASSIUM 3.4 mmol/L (3.4-5.0); TOTAL PROTEIN 6.6 gm/dL (6.4-8.2)
[2019-07-19] MEDS ORDERED: TAMIFLU 75MG75 MG PO (17:36)
[2019-07-19] MEDS ORDERED: CEPHALEXIN500 M1 PO (17:36)
[2019-07-19 18:29] VITALS: PULSE 74
== END 2019-07-19 18:29 | disposition home or self-care (01) ==
LOC: COL.ER 14:18
PROVIDERS: Emergency Medicine
DX: N39.0 Urinary tract infection, site not specified (principal); J10.1 Influenza due to other identified influenza virus with other respiratory manifestations; J44.9 Chronic obstructive pulmonary disease, unspecified; I10 Essential (primary) hypertension; I25.10 Atherosclerotic heart disease of native coronary artery without angina pectoris; Z79.82 Long term (current) use of aspirin; Z85.118 Personal history of other malignant neoplasm of bronchus and lung; Z85.038 Personal history of other malignant neoplasm of large intestine; Z85.040 Personal history of malignant carcinoid tumor of rectum
CPT/HCPCS: J7040

== ENCOUNTER → 2019-08-04 | Outpatient (CLI) | payer MEDICARE, MEDICAID ==
[~2019-08-04] MED LIST changes: +CEPHALEXIN500 M1 PO; +TAMIFLU 75MG75 MG PO
[2019-08-04 20:24] LABS: BASO # 0.1 (0.0-0.2); BASO % 0.5 % (0.0-2.0); EOS # 0.1 (0.0-0.7); EOS % 0.9 % (0-4.0); GRAN # 8.8 (1.4-6.5); GRAN % 83.7 % (42.2-75.2); HEMATOCRIT 40.1 % (42.0-52.0); HEMOGLOBIN 13.3 g/dl (13.5-18.0); LYMPH # 0.8 (1.2-3.4); LYMPH % 7.6 % (20.0-51.0); MEAN CELL VOLUME 92 fl (80.0-100.0); MEAN CORPUSCULAR HEMOGLOBIN 31 pg (27.0-31.0); MEAN CORPUSCULAR HGB CONC 33 g/dl (33.0-37.0); MEAN PLATELET VOLUME 11.7 fl (7.4-10.4); MONO # 0.7 (0.1-0.6); MONO % 6.9 % (1.7-9.3); PLATELET COUNT 191 K/mm3 (130-400); RED BLOOD COUNT 4.35 M/mm3 (4.20-5.60); REDCELL DISTRIBUTION WIDTH-CV 14.5 % (11.5-14.5)
[2019-08-04 20:35] LABS: CALCIUM 9.6 mg/dL (8.4-10.2); CREATININE, serum 1.6 (0.66-1.25); POTASSIUM 4.4 mmol/L (3.4-5.0)
== END ==
LOC: ZCOL.LAB 20:17
PROVIDERS: Internal Medicine
DX: J18.9 Pneumonia, unspecified organism (principal)

== ENCOUNTER → 2019-12-07 | Outpatient (CLI) | payer MEDICARE, MEDICAID | LOC: ZCOL.LAB 15:12 | DX: E61.2 Magnesium deficiency (principal); D51.9 Vitamin B12 deficiency anemia, unspecified ==

== ENCOUNTER → 2020-02-07 | Outpatient (CLI) | payer MEDICARE, MEDICAID ==
[2020-02-07 12:01] LABS: ALBUMIN 3.5 gm/dL (3.5-5.0); BILIRUBIN,TOTAL 0.7 mg/dL (0.0-1.0); CALCIUM 8.9 mg/dL (8.4-10.2); CHOLESTEROL RISK RATIO 3.1; CREATININE, serum 1.39 (0.66-1.25); POTASSIUM 3.7 mmol/L (3.4-5.0); TOTAL PROTEIN 5.9 gm/dL (6.4-8.2)
[2020-02-07 12:29] LABS: THYROID STIMULATING HORMONE 4.16 uIU/mL (0.465-4.680)
== END ==
LOC: ZCOL.LAB 09:24
PROVIDERS: Internal Medicine
DX: E78.5 Hyperlipidemia, unspecified (principal); I10 Essential (primary) hypertension

== ENCOUNTER 2020-07-31 17:29 | Emergency (ER) | payer MEDICARE, MEDICAID ==
[~2020-07-31] VITALS: Ht 167.6 cm; Wt 81.8 kg
[2020-07-31 17:30] VITALS: BP 90/70; PULSE 93; TEMP 97.6
[2020-07-31 18:11] LABS: ALBUMIN 2.6 gm/dL (3.5-5.0); BILIRUBIN,TOTAL 0.8 mg/dL (0.0-1.0); CALCIUM 7.4 mg/dL (8.4-10.2); CREATININE, serum 1.52 (0.66-1.25); POTASSIUM 3.3 mmol/L (3.4-5.0); TOTAL PROTEIN 4.7 gm/dL (6.4-8.2)
[2020-07-31 18:12] LABS: MEAN CELL VOLUME 98 fl (80.0-100.0); MEAN CORPUSCULAR HGB CONC 33 g/dl (33.0-37.0); MEAN PLATELET VOLUME 11.1 fl (7.4-10.4); PLATELET COUNT 214 K/mm3 (130-400); RED BLOOD COUNT 3.01 M/mm3 (4.20-5.60)
[2020-07-31 18:14] LABS: INR 1.5 (0.8-3.0); PROTHROMBIN TIME 16.4 SECONDS (9.7-12.8)
[2020-07-31 18:17] LABS: HEMATOCRIT 29.5 % (42.0-52.0); HEMOGLOBIN 9.7 g/dl (13.5-18.0); MEAN CORPUSCULAR HEMOGLOBIN 32 pg (27.0-31.0)
[2020-07-31 18:24] LABS: TROPONIN-I 0.02 ng/mL (0.000-0.035)
--- NOTE | 2020-07-31 18:35 | NUR ---
Notified Dr. Doug Canseco of patient , PCP Dr. Yissel Gomez.
[2020-07-31 19:12] LABS: BAND 4 % (0-10); EOSINOPHIL 2 % (0-4); LYMPHOCYTE 20 % (20.0-51.0); NEUTROPHILS 65 % (42.0-75.2)
[2020-07-31 19:13] LABS: PLATELET ESTIMATE NORMAL (NORMAL)
[2020-07-31 19:14] LABS: HYPOCHROMIA 1+
== END 2020-07-31 19:27 | disposition expired ==
LOC: COL.ER 17:29
PROVIDERS: Emergency Medicine
DX: G40.909 Epilepsy, unspecified, not intractable, without status epilepticus (principal); I48.91 Unspecified atrial fibrillation; K21.9 Gastro-esophageal reflux disease without esophagitis; E78.5 Hyperlipidemia, unspecified; I10 Essential (primary) hypertension; Z95.0 Presence of cardiac pacemaker; Z95.9 Presence of cardiac and vascular implant and graft, unspecified; Z79.82 Long term (current) use of aspirin